=== PATIENT | female | born 1935 | race Caucasian/White ===

== ENCOUNTER → 2016-06-01 | Outpatient (CLI) | payer OTHER ==
[~2016-06-01] MED LIST: ASPIRIN EC81 M1 PO; ASPIRIN325 PO; BYSTOLIC 5 MG5 M1 PO; CARDIZEM CD240 MG PO; DILTIAZEM 24HR240 MG PO; EQL CALCIUM PO; GABAPENTIN PO; GLUCOSA-CHOND-1 EACH PO; HYDROCHLOROTHIA25 M1 PO; HYDROCHLOROTHIA25 M2 PO; LISINOPRIL10 MG; LUTEIN10 MG; MIRALAX17 GM PO; NAPROSYN500 MG PO; PROTONIX40 MG PO; TRAMADOL 50 MG50 MG PO; VITAMIN D400 UNI1 PO
== END ==
LOC: RAD 14:51
DX: M17.12 Unilateral primary osteoarthritis, left knee (principal); M16.12 Unilateral primary osteoarthritis, left hip; M25.562 Pain in left knee; M25.552 Pain in left hip

== ENCOUNTER → 2016-06-30 | Outpatient (CLI) | payer OTHER | LOC: NUC 09:03 | DX: M81.0 Age-related osteoporosis without current pathological fracture (principal); Z78.0 Asymptomatic menopausal state ==

== ENCOUNTER 2016-11-15 17:23 | Emergency (ER) | payer OTHER ==
[~2016-11-15] VITALS: Ht 165.1 cm; Wt 79.4 kg
[2016-11-15] MEDS ORDERED: LOPRESSOR50 PO (17:43)
[2016-11-15] MEDS ORDERED: MICROZIDE12.5 MG PO (17:43)
[2016-11-15] MEDS ORDERED: NORVASC2.5 MG PO (18:24)
== END 2016-11-15 18:34 | disposition home or self-care (01) ==
LOC: ER 17:23
DX: I10 Essential (primary) hypertension (principal); Z90.89 Acquired absence of other organs; Z90.49 Acquired absence of other specified parts of digestive tract; Z90.710 Acquired absence of both cervix and uterus; Z88.8 Allergy status to other drugs, medicaments and biological substances; Z88.1 Allergy status to other antibiotic agents; Z85.42 Personal history of malignant neoplasm of other parts of uterus

== ENCOUNTER 2017-04-25 12:18 | Emergency (ER) | payer OTHER ==
[~2017-04-25] VITALS: Ht 162.6 cm; Wt 81.2 kg
--- NOTE | ~2017-04-25 | EKG ---
[address] [place] [address] ELECTROCARDIOGRAM REPORT Name: KAYDEN VAZ Room #: [facility] [id number] Admission: 04/25/17 Attend Phys: Discharge: 04/25/17 Date of : 37 Report #: [id number] THIS REPORT FOR: //name// [facility] ED Test Date: 2017-04-25 Test Time: 12:44:36 Pat Name: KAYDEN VAZ Department: Room: Gender: F Bellhop: SHAUNA : 1935 Requested By: Maksim Camara Order Number: [id number] MD: Aaron Jj Measurements Intervals [place] Rate: 72 P: NV: QRS: 8 QRSD: 107 T: 10 QT: 402 QTc: 440 Interpretive Statements Sinus rhythm RSR' in V1 or V2, right VCD or RVH Compared to ECG 04/17/2016 00:41:48 Atrial premature complex(es) no longer present Electronically Signed On 04-26-2017 8:25:06 SENIOR TECHNICAL PROJECT MANAGER by Aaron Jj [email or web address] <ELECTRONICALLY SIGNED> By: Aaron Jj MD, [facility] 04/26/17 0825 1244 43 Aaron Jj MD, [facility] /EPI
[~2017-04-25 12:18] MED LIST changes: +LOPRESSOR50 PO; +MICROZIDE12.5 MG PO; +NORVASC2.5 MG PO
[2017-04-25 13:06] LABS: HEMATOCRIT 48.2 % (37.0-47.0); HEMOGLOBIN 16.4 gm/dL (12.0-15.0); MCH 29.5 pg (26.0-34.0); MCV 86.7 fL (80.0-100.0); RBC 5.56 mil/uL (4.20-5.00); RDW 13.6 % (10.5-14.5); WBC 6.1 thou/uL (4.0-11.0)
[2017-04-25 13:15] LABS: CALCIUM 9.9 mg/dL (8.5-10.1); CREATININE 0.8 mg/dL (0.6-1.0); POTASSIUM 3.4 mmol/L (3.5-5.1)
[2017-04-25 15:15] VITALS: BP 146/75
== END 2017-04-25 15:16 | disposition home or self-care (01) ==
LOC: ER 12:18
PROVIDERS: Physician Assistant
DX: I10 Essential (primary) hypertension (principal); M54.9 Dorsalgia, unspecified; Z90.710 Acquired absence of both cervix and uterus; Z85.42 Personal history of malignant neoplasm of other parts of uterus; Z90.49 Acquired absence of other specified parts of digestive tract; Z88.8 Allergy status to other drugs, medicaments and biological substances; Z88.1 Allergy status to other antibiotic agents

== ENCOUNTER → 2018-02-18 | Outpatient (CLI) | payer OTHER | LOC: CAT 10:12 | DX: Z13.6 Encounter for screening for cardiovascular disorders (principal); E78.00 Pure hypercholesterolemia, unspecified ==

== ENCOUNTER 2018-11-19 13:20 | Emergency (ER) | payer OTHER ==
[~2018-11-19] VITALS: Ht 165.1 cm; Wt 78.9 kg
[2018-11-19 15:18] LABS: ABSOLUTE NEUTROPHILS 4.4 thou/uL (1.4-8.2); BASOPHILS 0.3 % (0.0-2.0); EOSINOPHILS 1.3 % (0.0-3.0); HEMOGLOBIN 15.6 gm/dL (12.0-15.0); LYMPHOCYTES 21.9 % (24.0-44.0); MCH 29.1 pg (26.0-34.0); MCHC 33.2 g/dL (28.0-37.0); MCV 87.8 fL (80.0-100.0); MONOCYTES 7.7 % (1.0-8.0); PLATELET COUNT 198 thou/uL (150-400); POLYS 68.8 % (36.0-66.0); RBC 5.36 mil/uL (4.20-5.00); RDW 13.9 % (10.5-14.5); WBC 6.3 thou/uL (4.0-11.0)
[2018-11-19 15:27] LABS: ANION GAP 7 mmol/L (7-16); BUN 18 mg/dL (7-18); CALCIUM 9.5 mg/dL (8.5-10.1); CHLORIDE 99 mmol/L (98-107); CO2 28 mmol/L (21-32); CREATININE 0.9 mg/dL (0.6-1.0); GLUCOSE 102 mg/dL (74-106); POTASSIUM 3.6 mmol/L (3.5-5.1); SODIUM 134 mmol/L (136-145)
[2018-11-19 15:37] LABS: ALBUMIN 3.7 g/dL (3.4-5.0); SGOT 27 U/L (15-37); SGPT 18 U/L (30-65); TOTAL BILIRUBIN 0.3 mg/dL (<0.1-1.0); TOTAL PROTEIN 7.5 g/dL (6.4-8.2); TROPONIN-I <0.06 ng/mL (<0.06)
[2018-11-19 16:31] LABS: URINE BILIRUBIN NEGATIVE (Negative); URINE BLOOD NEGATIVE (Negative); URINE CLARITY CLEAR; URINE COLOR YELLOW; URINE GLUCOSE-RANDOM* NEGATIVE (Negative); URINE KETONES NEGATIVE (Negative); URINE LEUKOCYTES-REFLEX 1+ (Negative); URINE NITRITE-REFLEX NEGATIVE (Negative); URINE PROTEIN (DIPSTICK) NEGATIVE (Negative); URINE UROBILINOGEN 0.2 E.U./dl (0.2-1.0)
[2018-11-19 16:44] LABS: BACTERIA-REFLEX None Seen /HPF (None Seen); CRYSTALS None Seen /LPF (None Seen); SQUAMOUS None Seen /LPF (0-3); URINE RBC None Seen /HPF (0-2); URINE WBC-REFLEX 0-5 Rare /HPF (0-5)
[2018-11-19 17:08] VITALS: BP 169/64
--- NOTE | 2018-11-20 08:05 | EKG ---
[address] [address] [facility] [place] [address] ELECTROCARDIOGRAM REPORT Name: KAYDEN VAZ Room #: [facility]P [facility] [id number] ������������������ Admission: 11/19/18 ������������������ Attend Phys: Discharge: 11/19/18 ������������������ Date of : 37 Report #: [id number] ����������������������������������������������������������������� [id number] THIS REPORT FOR: //name// [facility] ED Test Date: 2018-11-19 Test Time: 13:30:34 Pat Name: KAYDEN VAZ Department: Room: Gender: F Scuba Diving Teacher: MAGALIE : 1935 Requested By: Tevin Up Order Number: [id number] MD: Aaron Jj Measurements Intervals [place] Rate: 75 P: 26 SC: 171 QRS: 14 QRSD: 104 T: 20 QT: 385 QTc: 430 Interpretive Statements Sinus rhythm Ventricular premature complex RSR' in V1 or V2, right VCD Compared to ECG 04/25/2017 12:44:36 Ventricular premature complex(es) now present Electronically Signed On 11-20-2018 8:05:39 CDT by Aaron Jj [email or web address] ��������������������������������������������� <ELECTRONICALLY SIGNED> ���������������������������������������� By: Aaron Jj MD, [facility] ��������������������������������������������� 11/20/18 0805 29 Aaron Jj MD, [facility] /EPI
== END 2018-11-19 17:22 | disposition home or self-care (01) ==
LOC: ER 13:20
PROVIDERS: Emergency Medicine
DX: R42 Dizziness and giddiness (principal); I10 Essential (primary) hypertension; Z90.89 Acquired absence of other organs; Z90.49 Acquired absence of other specified parts of digestive tract; Z90.710 Acquired absence of both cervix and uterus; Z85.42 Personal history of malignant neoplasm of other parts of uterus; Z88.8 Allergy status to other drugs, medicaments and biological substances; Z88.1 Allergy status to other antibiotic agents

== ENCOUNTER → 2019-01-16 | Outpatient (CLI) | payer OTHER | LOC: ULTRA 12:31 | DX: M79.605 Pain in left leg (principal); R20.0 Anesthesia of skin; R20.2 Paresthesia of skin; Z88.8 Allergy status to other drugs, medicaments and biological substances ==

== ENCOUNTER 2019-03-12 04:01 | Emergency (ER) | payer OTHER ==
[~2019-03-12] VITALS: Ht 162.6 cm; Wt 81.7 kg
[2019-03-12 05:35] LABS: HEMATOCRIT 44.9 % (37.0-47.0); HEMOGLOBIN 15.1 gm/dL (12.0-15.0); MCH 29.4 pg (26.0-34.0); MCHC 33.6 g/dL (28.0-37.0); MCV 87.3 fL (80.0-100.0); RBC 5.14 mil/uL (4.20-5.00); WBC 6.9 thou/uL (4.0-11.0)
[2019-03-12 05:44] LABS: ANION GAP 9 mmol/L (7-16); BUN 20 mg/dL (7-18); CALCIUM 9.5 mg/dL (8.5-10.1); CHLORIDE 101 mmol/L (98-107); CO2 29 mmol/L (21-32); CREATININE 0.8 mg/dL (0.6-1.0); GLUCOSE 100 mg/dL (74-106); POTASSIUM 3.6 mmol/L (3.5-5.1); SODIUM 139 mmol/L (136-145)
[2019-03-12 05:53] LABS: TROPONIN-I <0.06 ng/mL (<0.06)
[2019-03-12 06:23] VITALS: BP 155/60
--- NOTE | 2019-03-13 08:21 | EKG ---
[facility] [place] [address] ELECTROCARDIOGRAM REPORT Name: KAYDEN VAZ Room #: DEP [facility]oss[facility]#: [id number] Admission: 03/12/19 Attend Phys: Discharge: 03/12/19 Date of : 37 Report #: [id number] THIS REPORT FOR: //name// [facility] ED Test Date: 2019-03-12 Test Time: 04:42:49 Pat Name: KAYDEN VAZ Department: Room: Gender: F Trim Carpenter: FLASH RANGING CREWMEMBER : 1935 Requested By: Javier Hammer Order Number: [id number] MD: Aaron Jj Measurements Intervals [place] Rate: 71 P: 42 MD: 184 QRS: 5 QRSD: 105 T: 9 QT: 413 QTc: 449 Interpretive Statements Sinus rhythm RSR' in V1 or V2, right VCD Compared to ECG 11/19/2018 13:30:34 Ventricular premature complex(es) no longer present Electronically Signed On 03-13-2019 8:20:37 FACILITY WORKER by Aaron Jj [email or web address] <ELECTRONICALLY SIGNED> By: Aaron Jj MD, [facility] 03/13/19819 1 1 Aaron Jj MD, [facility] /EPI
== END 2019-03-12 06:10 | disposition home or self-care (01) ==
LOC: ER 04:01
PROVIDERS: Emergency Medicine
DX: M79.602 Pain in left arm (principal); I10 Essential (primary) hypertension; Z90.710 Acquired absence of both cervix and uterus; Z90.49 Acquired absence of other specified parts of digestive tract; Z85.42 Personal history of malignant neoplasm of other parts of uterus; Z88.1 Allergy status to other antibiotic agents; Z88.8 Allergy status to other drugs, medicaments and biological substances

== ENCOUNTER 2019-10-10 13:42 | Emergency (ER) | payer OTHER ==
[~2019-10-10] VITALS: Ht 162.6 cm; Wt 75.8 kg
[2019-10-10 14:20] LABS: ABSOLUTE NEUTROPHILS 4.7 thou/uL (1.4-8.2); BASOPHILS 0.4 % (0.0-2.0); EOSINOPHILS 0.8 % (0.0-3.0); HEMOGLOBIN 16.3 gm/dL (12.0-15.0); LYMPHOCYTES 16.2 % (24.0-44.0); MCH 30.3 pg (26.0-34.0); MCHC 34.8 g/dL (28.0-37.0); MCV 87.1 fL (80.0-100.0); MONOCYTES 7.7 % (1.0-8.0); PLATELET COUNT 223 thou/uL (150-400); POLYS 74.9 % (36.0-66.0); RDW 13.6 % (10.5-14.5); WBC 6.3 thou/uL (4.0-11.0)
[2019-10-10 14:30] LABS: ANION GAP 10 mmol/L (7-16); BUN 10 mg/dL (7-18); CALCIUM 9.3 mg/dL (8.5-10.1); CHLORIDE 95 mmol/L (98-107); CO2 26 mmol/L (21-32); CREATININE 0.7 mg/dL (0.6-1.0); GLUCOSE 109 mg/dL (74-106); POTASSIUM 3.3 mmol/L (3.5-5.1); SODIUM 131 mmol/L (136-145)
[2019-10-10 14:43] LABS: ALBUMIN 3.9 g/dL (3.4-5.0); SGOT 19 U/L (15-37); SGPT 23 U/L (30-65); TOTAL BILIRUBIN 0.5 mg/dL (0.2-1.0); TOTAL PROTEIN 7.5 g/dL (6.4-8.2); TROPONIN-I <0.06 ng/mL (<0.06)
[2019-10-10 15:37] VITALS: BP 154/71
--- NOTE | 2019-10-11 10:49 | EKG ---
[facility] [place] [address] ELECTROCARDIOGRAM REPORT Name: KAYDEN VAZ [facility] [id number] Admission: 10/10/19 Attend Phys: Discharge: 10/10/19 Date of : 37 Report #: [id number] THIS REPORT FOR: cc: Jeremy Pruitt MD, Neal A. MD Lundgren, Craig H. MD [facility] ~ THIS REPORT FOR: //name// [facility] ED Test Date: 2019-10-10 Test Time: 13:46:32 Pat Name: KAYDEN VAZ Department: Room: Gender: F Vice President Corporate Communications: AARON : 1935 Requested By: Calixto Sood Order Number: [id number] MD: Aaron Jj Measurements Intervals [place] Rate: 77 P: 30 DC: 166 QRS: 6 QRSD: 100 T: 9 QT: 393 QTc: 445 Interpretive Statements Sinus rhythm RSR' in V1 or V2, right VCD Nonspecific ST segment abnormality Compared to ECG 03/12/2019 04:42:49 ST segment abnormality is now present Electronically Signed On 10-11-2019 10:49:46 CDT by Aaron Jj [email or web address] <ELECTRONICALLY SIGNED> By: Aaron Jj MD, [facility] 10/11/19 1049 1346 1346 Aaron Jj MD, [facility] /EPI
== END 2019-10-10 15:38 | disposition home or self-care (01) ==
LOC: ER 13:42
PROVIDERS: Emergency Medicine
DX: R07.89 Other chest pain (principal); N39.0 Urinary tract infection, site not specified; I10 Essential (primary) hypertension; Z90.711 Acquired absence of uterus with remaining cervical stump; Z90.49 Acquired absence of other specified parts of digestive tract; Z85.42 Personal history of malignant neoplasm of other parts of uterus; Z79.899 Other long term (current) drug therapy; Z88.8 Allergy status to other drugs, medicaments and biological substances; Z88.1 Allergy status to other antibiotic agents